=== PATIENT | male | born 1965 | race Caucasian/White ===

== ENCOUNTER → 2020-10-19 | Outpatient (CLI) | payer OTHER | LOC: COL.RAD 09:08 | DX: M25.561 Pain in right knee (principal) ==

== ENCOUNTER → 2023-05-21 | Outpatient (CLI) | payer MEDICAID | LOC: MHCPAIN 12:52 | DX: M54.50 Low back pain, unspecified (principal); M54.2 Cervicalgia; M79.18 Myalgia, other site; M51.36 Other intervertebral disc degeneration, lumbar region; M47.816 Spondylosis without myelopathy or radiculopathy, lumbar region; R20.0 Anesthesia of skin ==

== ENCOUNTER → 2023-06-10 | Outpatient (CLI) | payer MEDICAID ==
[~2023-06-10] MED LIST: Iohexol 300 - 10 ML VIAL ONE; Lidocaine PF 1% (10 MG/ML) 5 ML VIAL ONE
== END ==
LOC: MHCPAIN 09:39
DX: M54.16 Radiculopathy, lumbar region (principal)
CPT/HCPCS: G0463; J1100; Q9967